=== PATIENT | female | born 2000 | race Caucasian/White ===

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

== ENCOUNTER → 2019-10-13 | Outpatient (CLI) | payer SELFPAY | END | disposition home or self-care (01) | LOC: MTDU 17:50 | PROVIDERS: PCP Pediatrics; Referring Provider Nurse Practitioner; Visit Provider Nurse Practitioner | DX: Z11.59 Encounter for screening for other viral diseases (principal) | CPT/HCPCS: 87635; 94799; U0003 ==

== ENCOUNTER 2020-02-24 14:37 | Emergency (ER) | payer SELFPAY ==
[2020-02-24 14:38] VITALS: BP 124/73; PULSE 77; RESP 18; TEMP 36.2; O2SAT 100; BMI 31.4
[2020-02-24 14:49] VITALS: O2SAT 100
--- NOTE | 2020-02-24 15:11 | RAD_ITS ---
STUDY: X-RAY CHEST REASON FOR EXAM: Female, 19 years old. Cough, shortness of breath, fatigue. TECHNIQUE: Single AP portable view of the chest. COMPARISON: None. FINDINGS: The lungs are clear and expanded. There is no demonstrated pleural abnormality. Normal size heart. Normal mediastinum and pat. Normal visualized pulmonary arteries. Normal visualized aortic arch and descending thoracic aorta. Normal visualized thoracic spine. Normal visualized ribs, clavicles, and shoulders. There is no demonstrated abnormality of the visualized soft tissue structures of the upper abdomen. RAD/Chest 1 View (Portable) IMPRESSION: Normal x-ray examination of the chest. Electronically Signed: Terry Bee MD at 16:15 EST Tel , Service support ,
--- NOTE | 2020-02-24 15:11 | EKG12_ITS ---
Test Reason : SOB Blood Pressure : / mmHG Vent. Rate : 072 BPM Atrial Rate : 072 BPM P-R Int : 136 ms QRS Dur : 080 ms QT Int : 412 ms P-R-T Axes : 044 038 014 degrees QTc Int : 451 ms Normal sinus rhythm Normal ECG Confirmed by CHRISTIAN GARNER, DAINA ([id number]), senior technical editor HOLLY MEDINA ([id number]) on 02/29/2020 9:20:26 AM Referred By: MIKEL Confirmed By:DAINA GONZALES MD
--- NOTE | 2020-02-24 15:12 | ED.VIS.GEN ---
History of Present Illness Chief Complaint: Shortness of Breath Informant: Patient Onset: Yesterday Current Severity: Mild Maximum Severity: Mild Narrative: Patient reports waking yesterday morning with viral syndrome type symptoms. She reports dry cough with body aches, headache, sore throat. She has not developed a fever. She states her cough worsened last evening and she has some chest pressure. She denies wheezing. Past Medical History - Allergies and Home Meds Allergies/Adverse Reactions: Allergies No Known Allergies Allergy (Verified 02/24/20 14:41) Primary Care Physician: Ivonne Graham MD [Primary Care Provider] - Past Medical History: None Smoking Status: Never smoker Review of Systems General: Denies: Chills, Fever Eyes: Denies: Visual changes - bilaterally ENT: Denies: Bilateral ear pain Cardiovascular: Reports: Chest pain Respiratory: Reports: Dyspnea, Cough. Denies: Sputum Gastrointestinal: Denies: Abdominal pain, Vomiting, Diarrhea Genitourinary: Denies: Dysuria Musculoskeletal: Reports: Myalgias. Denies: Extremity Pain Skin: Denies: Rash Neurological: Reports: Headache Hematologic: Denies: Easy bruising, Easy bleeding Allergy: Denies: Uticaria Physical Exam Vital Signs/Narrative: Vital Signs Temp Pulse Resp BP Pulse Ox 02/24/20 14:38 97.1 F L 77 18 124/73 H 100 Inital Vital Signs reviewed: Yes General: Well nourished, Well developed Head: Normocephalic ENT: Moist mucous membranes Neck: Supple Cardiovascular: Regular rate, Regular rhythm Respiratory: No distress, CTA bilaterally Abdomen: Soft, Nontender Skin: Normal color Neurological: Alert, Oriented x3 Psychological: Normal affect Diagnostic/Tx/Re-eval Chest X-Ray - ED: 1 View, Read by ED Physician, Normal, Heart, Lungs, Mediastinum, No Infiltrates - EKG Initial EKG Interpretation: Sinus Rhythm - Sinus at 72 with no acute ischemia. - Medical Decision Making EKG and chest x-ray are both unremarkable. Rapid Covid test will be obtained. Patient will get a text message with those test results. She is given care instructions for viral syndrome. ED Disposition - Plan for ED Patient: Disposition: Home or Assisted Living Diagnosis: Viral syndrome Instructions: ED Viral Syndrome (Adult) Referrals: Ivonne Graham MD [Primary Care Provider] - 1 Week if not improving
--- NOTE | 2020-02-24 15:21 | NURSING ---
NO OLD EKGS
== END 2020-02-24 16:11 | disposition home or self-care (01) ==
LOC: ED 15:47
PROVIDERS: Emergency Provider Emergency Medicine; PCP Pediatrics
DX: B34.9 Viral infection, unspecified (principal); R07.89 Other chest pain; J02.9 Acute pharyngitis, unspecified; R51.9 Headache, unspecified; R05 Cough; Z79.899 Other long term (current) drug therapy
CPT/HCPCS: 71045; 87426; 93005; 99282

== ENCOUNTER 2022-10-11 22:35 | Emergency (ER) | payer BC, SELFPAY ==
[2022-10-11 22:36] VITALS: BP 115/90; PULSE 119; RESP 15; TEMP 36.5; O2SAT 97; BMI 36.3
--- NOTE | 2022-10-11 23:52 | EDS_ITS ---
HPI History of Present Illness Chief Complaint: Sore Throat Informant: patient Narrative Narrative: Patient presents with sore throat and concern for strep. She states she started to get a sore throat yesterday morning. She is still eating and drinking but it sore. She has had a fever up to just over 101. No cough or congestion. No trouble swallowing. No shortness of breath. Patient was seen in urgent care today. She was diagnosed with a double ear infection. But a strep test was not done. Patient states she needs to know if she has strep because her work requires that. She was started on amoxicillin but was not able to fill it due to the pharmacy not having it ready today. Therefore it has not yet been started. [facility] Medical History (Updated 10/11/22 @ 23:[address] Stanley Tamez MD) Anxiety Depression Home Medications hydroxyzine HCl 10 mg tablet 50 mg PO BID 01/06/17 [History Last Taken Unknown] naproxen 500 mg tablet 500 mg PO BID PRN #20 tabs 01/07/17 [Rx Last Taken Unknown] Allergy/AdvReac Type Severity Reaction Status Date / Time No Known Allergies Allergy Verified 10/11/22 22:41 Social History Smoking Status: Never smoker [facility] ED ENT ENT ED: Reports sore throat Cardiovascular Cardiovascular: Denies chest pain or palpitations Respiratory/Chest Respiratory/Chest: Denies cough Gastrointestinal Gastrointestinal: Denies nausea or vomiting Musculoskeletal Musculoskeletal: Denies myalgias Integumentary Denies rash Neurologic Neurologic: Denies headache(s), paresthesias or weakness Endocrine Endocrinology: Denies polydipsia or polyuria Hematologic/Lymphatic Hematologic/Lymphatic: Denies anemia Allergic/Immunologic Allergic/Immunologic ED: Denies tongue swelling or urticaria EXAM Physical Exam Narrative Exam Narrative: Patient awake alert no acute distress sitting comfortably in bed. HEENT shows no external swelling. There is some mild bilateral tonsillar erythema. They are minimally tender nonenlarged. No notable exudate. Voice is normal. Handling secretions is normal. There is no other swelling in the mouth or floor of the tongue. Teeth are nontender. Sinuses are not tender. Her ears actually both look clear. They are not red. There is minimal fluid. Neck is supple. There is some mild shotty lymphadenopathy bilaterally. Lungs are clear. Heart rate is about 100. No murmur gallop or rub. She admits she has not been eating and drinking as much although she is able to. She was encouraged to drink fluids with a fever. Abdomen is benign. Extremities show no swelling. Skin shows no rash. No sandpaper. Const Vital Signs: 10/11/22 22:36 10/11/22 23:37 Temperature 97.7 F L Temperature Source Temporal Pulse Rate 119 H Respiratory Rate 15 Respiratory Effort Normal Non-Labored Respiratory Pattern Normal Blood Pressure 115/90 H Blood Pressure Mean 98 Pulse Ox 97 Oxygen Delivery Method Room Air MDM MDM MDM Narrative Medical decision making narrative: Patient's rapid strep is positive. She already has the prescription for amoxicillin. But I will give her a dose this evening as she has not been able to start it yet. I will also give her a dose of Decadron for symptoms. We discussed reasons to return including signs symptoms of abscess formation. Discharge Plan Triage Chief Complaint: Sore Throat ED Provider: Stanley Tamez Dx/Rx/DC Orders Clinical Impression: History of fever, Strep pharyngitis Instructions: ED Pharyngitis, Strep (Confirmed) Prescriptions: No Action hydroxyzine HCl 10 MG tablet 50 mg PO BID naproxen 500 MG tablet 500 mg PO BID PRN Qty: 20 0RF Primary Care Provider: Care Physician,No Primary Activity Restrictions/Additional Instructions: Follow-up with your doctor if not better in several days to a week.
[2022-10-12] MEDS: AMOXICILLIN 500 MG CAPSULE PO (00:10)
[2022-10-12] MEDS: dexAMETHasone 4 MG Tablet 10 MG PO (00:11)
== END 2022-10-12 00:17 | disposition home or self-care (01) ==
LOC: ED 23:55
PROVIDERS: Emergency Provider Emergency Medicine; Visit Provider Emergency Medicine
DX: J02.0 Streptococcal pharyngitis (principal)
CPT/HCPCS: 87880; 99283

== ENCOUNTER 2023-05-25 04:22 | Emergency (ER) | payer SELFPAY ==
[2023-05-25 04:23] VITALS: BP 109/72; PULSE 96; RESP 18; TEMP 35.8; O2SAT 99; BMI 38.6
--- NOTE | 2023-05-25 04:27 | EX.ED.GENINJ ---
HPI History of Present Illness Chief Complaint: Nausea/Vomiting [facility] Medical History Anxiety Depression Home Medications promethazine 25 mg tablet 25 mg PO TID PRN nausea and vomiting #20 tabs 05/25/23 [Rx Last Taken Unknown] sertraline 100 mg tablet (Zoloft) 100 mg PO DAILY 05/25/23 [History Last Taken Unknown] Allergy/AdvReac Type Severity Reaction Status Date / Time amoxicillin [From Augmentin] AdvReac Upset Verified 05/25/23 04:22 Stomach clavulanic acid AdvReac Upset Verified 05/25/23 04:22 [From Augmentin] Stomach Social History Smoking Status: Never smoker EXAM Physical Exam Const Vital Signs: 05/25/23 04:23 Temperature 96.5 F L Temperature Source Temporal Pulse Rate 96 Respiratory Rate 18 Blood Pressure 109/72 Blood Pressure Mean 84 Pulse Ox 99 MDM MDM MDM Narrative Medical decision making narrative: HISTORY OF PRESENT ILLNESS: 23-year-old female presents with nausea vomiting. States this began approximately 2300 on 05/24/2023. She further states she has upper abdominal pain. Denies alcohol and marijuana use. Denies any other drug use. Denies any new foods, travel, antibiotics. No history abdominal surgeries. Last bowel movement was today with no melena hematochezia. Denies any vaginal bleeding or discharge. States she was last sexually active 1 month ago. REVIEW OF SYSTEMS: Pertinent positives: Nausea vomiting, abdominal pain Pertinent negatives: Chest pain, shortness of breath, fever, urinary complaints, vaginal bleeding or discharge, melena, hematochezia, constipation or diarrhea PHYSICAL EXAM: Nursing triage notes reviewed, Vital signs reviewed Constitutional: please see mdm HENT: MMM Eyes: Pupils equal round and reactive to light, Extraocular muscles intact Neck: No stridor, no JVD, full neck ROM Lungs: Clear to auscultation, No wheezing or rales. No increased work of breathing, no conversational dyspnea, no accessory muscle use, no nasal flaring. No respiratory distress noted Heart: Regular rate and rhythm, No murmurs, No rubs and No gallops, 2+ distal pulses (radial, femoral, posterior tibial) in all extremities Abdomen: Soft, there is no tenderness, rigidity, rebound or guarding, no obvious peritoneal signs, no palpable pulsatile abdominal masses, no auscultated abdominal bruit : No CVAT Extremities: No edema Neuro: No focal neurological deficits, cranial nerves II through XII intact, 5/5 strength in all extremities. Intact sensation to light touch in all extremities, 2+ reflexes bilateral patella tendons. Normal gait. No ataxia. Skin: No rash or lesions noted MEDICAL DECISION MAKING: Chief Complaint: Nausea vomiting External records reviewed: No recent Lundberg imaging of the abdomen pelvis noted Factors affecting care: none Social determinants of health: Denies illicit drug use History obtained from others: the patient's family Consults: none [facility] Narrative: Patient was hemodynamically stable, afebrile and nontoxic-appearing. Abdominal exam was benign not consistent with acute surgical pathology. Considered obtaining a CT scan but thought this was not indicated at this time given benign nature of the patient's abdominal exam, young age, and lack of abdominal surgical history. I considered the following differential diagnosis: AAA, small bowel obstruction, abdominal perforation, appendicitis, pancreatitis, hepatobiliary pathology (acute cholecystitis), mesenteric ischemia, pathology (ie nephrolithiasis, pyelonephritis). I obtained a broad lab workup to further elucidate the etiology patient complaints. Treat the patient medically with initially p.o. Zofran however patient vomited so I placed an IV and gave 1 L normal saline, IV Zofran and IV Pepcid for symptomatic relief. Patient's clinical exam not consistent with AAA, bowel obstruction perforation appendicitis or mesenteric ischemia. ALL IMAGES (IF OBTAINED) HAVE BEEN PERSONALLY REVIEWED AND INTERPRETED BY MYSELF. CBC with leukocytosis suggestive presenting inflammation likely reactive from nausea vomiting, no anemia or thrombocytopenia noted CMP without evidence of acute kidney injury, significant electrolyte abnormality, anion gap, no evidence hepatobiliary pathology. Lipase is wnl indicating no pancreatic inflammation. Urine test is negative The synthesis of the page history, physical exam, labs suggest no acute life-limiting etiology. Abdominal exam is benign. Appears able tolerate p.o. She given Phenergan for home-going. Return precautions were discussed. Work note was given The patient and/or family, caregivers express understanding. The patient and/or family, caregivers agrees with the plan. Shared decision making: I will have a discussion with the patient and or visitors regarding risk/benefits of further testing or admission. They will be made aware of of the risk/benefits inherent in this decision they will be given the opportunity to voice understanding. Total critical care time today provided was at least 0 minutes. This excludes separately billable procedures. Critical care time (if documented) is secondary to the patient having high probability of clinically significant/life threatening deterioration in the patient's condition which required my urgent intervention. Impression: 1. Nausea vomiting 2. Epigastric abdominal pain Dispo: Discharge home This note was generated with [employer] dictation software. It may contain incorrect words, spelling, and punctuation that were not noted in review of the chart prior to signing. Lab Data Labs: Laboratory Results - last 24 hr 05/25/23 05/25/23 05:09 05:12 WBC 15.9 H RBC 4.54 Hgb 12.9 Hct 40.0 MCV 88.1 MCH 28.4 MCHC 32.3 RDW Std Deviation 39.6 RDW Coeff of Shayla 12.3 Plt Count 247 MPV 11.4 Immature Gran % (Auto) 0.600 Neut % (Auto) 92.5 H Lymph % (Auto) 3.5 L Mcculloch % (Auto) 2.6 Eos % (Auto) 0.5 Baso % (Auto) 0.3 Absolute Neuts (auto) 14.7 H Absolute Lymphs (auto) 0.55 L Nucleated RBC % 0 Sodium 138 Potassium 4.1 Chloride 105 Carbon Dioxide 22.0 Anion Gap 11 BUN 18 Creatinine 1.07 H Estim Creat Clear Calc 87.52 Est GFR (MDRD) Af Amer 81 Est GFR (MDRD) Non-Af 67 BUN/Creatinine Ratio 16.8 Glucose 166 H Calcium 8.6 Total Bilirubin 0.70 Direct Bilirubin 0.15 AST 14 L ALT 19 Alkaline Phosphatase 74 Total Protein 7.4 Albumin 3.6 Globulin 3.8 Lipase 15 Urine Test Negative Discharge Plan Triage Chief Complaint: Nausea/Vomiting ED Provider: Roland Beckman Dx/Rx/DC Orders Instructions: ED Vomiting (Adult) Prescriptions: New promethazine 25 mg tablet 25 mg PO TID PRN (Reason: nausea and vomiting) Qty: 20 0RF No Action sertraline [Zoloft] 100 mg tablet 100 mg PO DAILY Primary Care Provider: Care Physician,No Primary Referrals: Genesis Hoffman MD [Med Staff - Licensing Analyst] - Care Physician,No Primary [Primary Care Provider] - Activity Restrictions/Additional Instructions: Thank you for trusting us with your care today! Please take Phenergan as needed for nausea vomiting control. Please return to the emergency department if your symptoms change or worsen. Specifically we cannot tolerate food or drink by mouth. Please follow with your primary care physician for further outpatient evaluation and management. Disposition Disposition: Home, Self Care
[2023-05-25] MEDS: Ondansetron ODT 4 MG Tablet PO (04:34)
[2023-05-25] MEDS: 0.9% Normal Saline (1000mL) 1,000 ML 1000 ML IV (04:59)
[2023-05-25] MEDS: Ondansetron 4 MG/2 ML Vial IV (04:59)
[2023-05-25] MEDS: Famotidine 200 MG/20 ML MDV 20 MG in 0.9% Normal Saline (Pres. free 8 ML 300 MG IV (05:02)
[2023-05-25 05:16] LABS: Absolute Lymphocyte Count 0.55 X10^3/uL (0.83-4.51); Absolute Neutrophil Count 14.7 X10^3/uL (2.0-7.7); Basophil# 0.04 X10^3/uL; Basophil% 0.3 % (0-1); Eosinophil# 0.08 X10^3/uL; Eosinophils% 0.5 % (0-5); Hemoglobin 12.9 g/dL (12.0-15.0); Lymphocyte # 0.55 X10^3/ul (0.83-4.51); Lymphocyte % 3.5 % (19-41); Mean Corp Hgb Conc 32.3 g/dL (32-36); Mean Corpuscular Hgb 28.4 pg (27.0-32.0); Mean Corpuscular Volume 88.1 fL (81-99); Mean Platelet Vol. 11.4 fl (6.2-12.0); Monocyte# 0.41 X10^3/uL; Monocyte% 2.6 % (0-10); NRBC Flagged by Analyzer 0 % (0-5); Neutrophil # 14.73 X10^3/uL (2.7-7.7); Neutrophil % 92.5 % (47-70); POSITIVE DIFFERENTIAL YES; Platelet Count 247 K/mm3 (150-450); RBC Distribution Width CV 12.3 % (11.6-14.6); RBC Distribution Width SD 39.6 fl (35.1-43.9); Red Blood Count 4.54 M/mm3 (4.2-5.4); White Blood Count 15.9 K/mm3 (4.4-11.0)
[2023-05-25 05:24] LABS: Internal QC Validated? YES +Cl - CLEAR BKGD; Pregnancy, Urine Negative Negative
[2023-05-25 05:34] LABS: AST(SGOT) 14 U/L (15-37); Alanine Aminotransfer ALT/SGPT 19 U/L (13-56); Albumin, Serum 3.6 g/dL (3.2-5.0); Alkaline Phosphatase 74 U/L (45-117); Anion Gap 11 (5-15); BUN 18 mg/dL (7-18); BUN/Creat Ratio 16.8 RATIO (10-20); Bilirubin, Direct 0.15 mg/dL (0.00-0.30); Calcium,Total 8.6 mg/dL (8.5-10.1); Chloride 105 mmol/L (98-107); Creatinine, Serum 1.07 mg/dL (0.55-1.02); EST Glomerular Filtration Rate 67 mL/min (>60); Est Glom Filt Rate - Afr Amer 81 mL/min (>60); Estimated Creatinine Clearance 87.52 ml/min; Globulin 3.8 g/dL (2.2-4.2); Glucose 166 mg/dL (74-106); Lipase 15 U/L (13-75); Potassium 4.1 mmol/L (3.5-5.1); Protein, Total 7.4 g/dL (6.4-8.2); Sodium Level 138 mmol/L (136-145)
[2023-05-25 05:44] VITALS: BP 118/76; PULSE 64; RESP 18; TEMP 36.4; O2SAT 99
== END 2023-05-25 06:17 | disposition home or self-care (01) ==
PROVIDERS: Emergency Provider Emergency Medicine; Visit Provider Emergency Medicine
DX: R11.2 Nausea with vomiting, unspecified (principal); R10.13 Epigastric pain; F32.A Depression, unspecified; F41.9 Anxiety disorder, unspecified; Z79.899 Other long term (current) drug therapy
CPT/HCPCS: 80048; 80076; 81025; 83690; 85025; 96361; 96374; 96375; 99283; J7030; A4216; J2405; J3490